=== PATIENT | female | born 1990 | race African-American/Black ===

== ENCOUNTER → 2021-10-06 | Outpatient (CLI) | payer OTHER ==
--- NOTE | 2021-10-06 14:39 | RAD ---
EXAM: CHEST 2 VIEWS. HISTORY: Tuberculosis screening. COMPARISON: None. FINDINGS: Frontal and lateral views of the chest are obtained. There are no confluent infiltrates. There is no pneumothorax or pleural effusion. The heart is not en larged. IMPRESSION: 1. No evidence of active mycobacterial disease. Electronically signed by: Fariha Solo MD (10/06/2021 2:37 PM) [id number]
== END ==
LOC: RAD 12:19
PROVIDERS: ATTEND Internal Medicine
DX: Z11.1 Encounter for screening for respiratory tuberculosis (principal)
CPT/HCPCS: 71046